=== PATIENT | female | born 1990 | race Caucasian/White ===

== ENCOUNTER 2019-09-23 22:29 | Emergency (ER) | payer OTHER ==
[~2019-09-23] VITALS: Ht 172.7 cm; Wt 104.3 kg
[2019-09-23 22:43] VITALS: Ht 172.7 cm; Wt 104.3 kg
[2019-09-24 00:32] VITALS: BP 119/76
== END 2019-09-24 00:32 | disposition home or self-care (01) ==
LOC: ED 22:29
DX: S92.511A Displaced fracture of proximal phalanx of right lesser toe(s), initial encounter for closed fracture (principal); W22.8XXA Striking against or struck by other objects, initial encounter; Y93.89 Activity, other specified; Y92.89 Other specified places as the place of occurrence of the external cause; Y99.8 Other external cause status
CPT/HCPCS: Q0092

== ENCOUNTER 2019-09-25 15:00 | Emergency (ER) | payer OTHER ==
[~2019-09-25] VITALS: Ht 172.7 cm; Wt 104.3 kg
[2019-09-25 15:03] VITALS: BP 121/87; Ht 172.7 cm; Wt 104.3 kg
== END 2019-09-25 15:57 | disposition home or self-care (01) ==
LOC: ED 15:00
DX: S92.501D Displaced unspecified fracture of right lesser toe(s), subsequent encounter for fracture with routine healing (principal); X58.XXXD Exposure to other specified factors, subsequent encounter